=== PATIENT | male | born 1990 | race African-American/Black ===

== ENCOUNTER 2024-01-10 15:03 | Emergency (ER) | payer OTHER ==
[~2024-01-10] VITALS: Ht 182.9 cm; Wt 144.7 kg
[2024-01-10 15:33] VITALS: BP 162/93; PULSE 118; RESP 18; TEMP 98.4; O2SAT 97
[2024-01-10] MEDS: KETOROLAC 60 MG/2 ML VIAL IM ONE (15:57)
[2024-01-10] MEDS ORDERED: NAPR-1704 PO (16:01)
[2024-01-10] MEDS ORDERED: TRAM-748 PO (16:01)
[2024-01-10] MEDS: HYDROcodone/APAP 5/325 MG 1 TAB TAB PO ONE (16:13)
[2024-01-10] MEDS ORDERED: CAPS1ADH5 TP (17:32)
[2024-01-10 17:35] VITALS: BP 139/91; PULSE 94; RESP 15; TEMP 36.66960; O2SAT 97
== END 2024-01-10 17:35 | disposition home or self-care (01) ==
LOC: MED 15:03
DX: S22.089A Unspecified fracture of T11-T12 vertebra, initial encounter for closed fracture (principal); Z79.1 Long term (current) use of non-steroidal anti-inflammatories (NSAID); Z79.899 Other long term (current) drug therapy; X58.XXXA Exposure to other specified factors, initial encounter; Y93.89 Activity, other specified; Y92.89 Other specified places as the place of occurrence of the external cause; Y99.8 Other external cause status
CPT/HCPCS: 72100; 73630; 99284; J1885